=== PATIENT | male | born 1935 | race Caucasian/White ===

== ENCOUNTER 2016-09-25 17:02 | Outpatient (CLI) | payer MEDICARE, BC | END 2016-09-25 17:03 | disposition home or self-care (01) | DX: I25.10 Atherosclerotic heart disease of native coronary artery without angina pectoris (principal); I48.0 Paroxysmal atrial fibrillation; I49.5 Sick sinus syndrome; R06.09 Other forms of dyspnea ==

== ENCOUNTER 2016-10-29 08:00 | Outpatient (CLI) | payer MEDICARE, BC | END 2016-10-29 08:01 | DX: R39.11 Hesitancy of micturition (principal) ==

== ENCOUNTER 2016-11-20 10:05 | Outpatient (CLI) | payer MEDICARE, BC | END 2016-11-20 10:06 | disposition home or self-care (01) | DX: E11.9 Type 2 diabetes mellitus without complications (principal); E78.5 Hyperlipidemia, unspecified; D48.5 Neoplasm of uncertain behavior of skin; I10 Essential (primary) hypertension; I25.10 Atherosclerotic heart disease of native coronary artery without angina pectoris ==

== ENCOUNTER 2016-12-20 01:00 | Outpatient (CLI) | payer MEDICARE, BC | END 2016-12-20 01:01 | disposition EMS.NT | LOC: EMS 01:00 | PROVIDERS: ATTEND Surgery | DX: R40.20 Unspecified coma (principal); R53.1 Weakness; E16.2 Hypoglycemia, unspecified ==

== ENCOUNTER 2016-12-25 09:08 | Outpatient (CLI) | payer MEDICARE, BC ==
[2016-12-25 13:18] LABS: BILIRUBIN,DIRECT 0.2 mg/dL (0.1-0.5); BILIRUBIN,TOTAL 1.4 mg/dL (0.2-1.0)
== END 2016-12-25 09:09 | disposition home or self-care (01) ==
LOC: LAB.WCP 09:08
PROVIDERS: ATTEND Family Medicine
DX: R74.8 Abnormal levels of other serum enzymes (principal); E11.9 Type 2 diabetes mellitus without complications; I48.0 Paroxysmal atrial fibrillation
CPT/HCPCS: 36415; 80076; 82150; 83690

== ENCOUNTER 2017-01-02 15:01 | Outpatient (CLI) | payer MEDICARE, BC ==
--- NOTE | 2017-01-02 17:25 | Ultrasound Report ---
SCROTAL DUPLEX: 01/02/2017 CLINICAL INDICATION: Intermittent right-sided pain. TECHNIQUE: Real-time scanning was performed with underwriting service representative static images obtained. The right testicle measures 3.4 x 2.5 x 2.0 cm, and the left testicle measures 3.7 x 2.4 x 2.1 cm. B oth testicles demonstrate normal flow and echotexture. A small right hydrocele is present, and small bilateral varicoceles are noted. No intratesticular mass or evidence of testicular torsion is ident ified. IMPRESSION: BILATERAL VARICOCELES AND SMALL RIGHT HYDROCELE. NO EVIDENCE OF INTRATESTICULAR MASS OR TORSION. 16:9:56 JOB #: [id number] EXT JOB #:[id number]
== END 2017-01-02 15:02 | disposition home or self-care (01) ==
LOC: DI 15:01
PROVIDERS: ATTEND Family Medicine
DX: N43.3 Hydrocele, unspecified (principal); I87.8 Other specified disorders of veins
CPT/HCPCS: 76870

== ENCOUNTER 2017-02-21 10:39 | Outpatient (CLI) | payer MEDICARE, BC ==
[2017-02-21 13:47] LABS: ALBUMIN/GLOBULIN RATIO 1.2 (1.0-2.2); BILIRUBIN,TOTAL 1.1 mg/dL (0.2-1.0); CALCIUM 9.1 mg/dL (8.5-10.3); CREATININE 0.8 mg/dL (0.6-1.2); POTASSIUM 4.1 mmol/L (3.5-5.0); TOTAL PROTEIN 6.7 g/dL (6.7-8.2)
[2017-02-21 13:58] LABS: HEMOGLOBIN A1C 0.94 g/dL
== END 2017-02-21 10:40 | disposition home or self-care (01) ==
LOC: LAB.WCP 10:39
PROVIDERS: ATTEND Family Medicine
DX: R74.8 Abnormal levels of other serum enzymes (principal); E11.9 Type 2 diabetes mellitus without complications; N28.9 Disorder of kidney and ureter, unspecified
CPT/HCPCS: 36415; 80053; 83036

== ENCOUNTER 2017-04-17 14:27 | Outpatient (CLI) | payer MEDICARE, BC ==
[2017-04-17 13:25] LABS: BILIRUBIN,TOTAL 0.9 mg/dL (0.2-1.0); TOTAL PROTEIN 7.1 g/dL (6.7-8.2)
[2017-04-17 13:28] LABS: HEMOGLOBIN A1C 0.88 g/dL
[2017-04-17 13:29] LABS: BILIRUBIN,DIRECT < 0.1 mg/dL (0.1-0.5)
== END 2017-04-17 14:28 | disposition home or self-care (01) ==
LOC: LAB.WCP 14:27
PROVIDERS: ATTEND Family Medicine
DX: R74.8 Abnormal levels of other serum enzymes (principal); E11.9 Type 2 diabetes mellitus without complications; I25.10 Atherosclerotic heart disease of native coronary artery without angina pectoris; N28.9 Disorder of kidney and ureter, unspecified
CPT/HCPCS: 36415; 80076; 83036

== ENCOUNTER 2017-06-17 15:10 | Outpatient (CLI) | payer MEDICARE, BC ==
[2017-06-17 19:41] LABS: ALBUMIN/GLOBULIN RATIO 1.2 (1.0-2.2); BILIRUBIN,TOTAL 0.9 mg/dL (0.2-1.0); CALCIUM 9.2 mg/dL (8.5-10.3); POTASSIUM 4.6 mmol/L (3.5-5.0); TOTAL PROTEIN 7.3 g/dL (6.7-8.2)
[2017-06-17 20:04] LABS: HEMOGLOBIN A1C 1.05 g/dL
== END 2017-06-17 15:11 | disposition home or self-care (01) ==
LOC: LAB.WCP 15:10
PROVIDERS: ATTEND Family Medicine
DX: R74.8 Abnormal levels of other serum enzymes (principal); E11.9 Type 2 diabetes mellitus without complications; I48.0 Paroxysmal atrial fibrillation; Z79.01 Long term (current) use of anticoagulants
CPT/HCPCS: 36415; 80053; 83036

== ENCOUNTER 2017-07-08 13:47 | Outpatient (CLI) | payer MEDICARE, BC ==
--- NOTE | 2017-07-08 15:51 | Mammography Report ---
EXAM: DIGITAL DIAGNOSTIC BILATERAL MAMMOGRAM: 07/08/2017 CLINICAL INDICATION: Left-sided tenderness, thickening. TECHNIQUE: Bilateral CC and MLO views. FINDINGS: The right breast demonstrates fatty replacement. Left gynecomastia is present. No suspicious masses, clustered microcalcifications, or regions of architectural distortion are identified. IMPRESSION: BENIGN FINDINGS, WITH ASYMMETRIC GYNECOMASTIA. RECOMMENDATIONS: Continued clinical management. BIRADS CATEGORY 2-BENIGN FINDINGS. STANDARD QUALIFYING STATEMENTS 1. This examination was reviewed with the aid of Computer-Aided Detection (CAD) . 2. A negative or benign imaging report should not delay biopsy if clinically suspicious mass is present. Consider surgical consultation if warranted. More than 5% of cancers are not identified by imaging. 3. Dense breasts may obscure an underlying neoplasm. TD: 07/08/2017 15:50 MTDD
== END 2017-07-08 13:48 | disposition home or self-care (01) ==
LOC: DI 13:47
PROVIDERS: ATTEND Family Medicine
DX: N64.4 Mastodynia (principal)
CPT/HCPCS: 77066

== ENCOUNTER 2017-09-02 16:10 | Outpatient (CLI) | payer MEDICARE, BC ==
[2017-09-02 19:30] LABS: HB2 TOTAL 16.4 g/dL; HEMOGLOBIN A1C 0.96 g/dL; HEMOGLOBIN A1C % 7.5 % (4.6-6.2)
[2017-09-02 19:44] LABS: CALCIUM 9.1 mg/dL (8.5-10.3); CREATININE 1.2 mg/dL (0.6-1.2)
== END 2017-09-02 16:11 | disposition home or self-care (01) ==
LOC: LAB.WCP 16:10
PROVIDERS: ATTEND Family Medicine
DX: E11.9 Type 2 diabetes mellitus without complications (principal)
CPT/HCPCS: 36415; 80048; 82043; 83036

== ENCOUNTER 2018-02-26 08:00 | Outpatient (CLI) | payer MEDICARE, BC ==
[2018-02-26 19:21] LABS: HB2 TOTAL 15.9 g/dL; HEMOGLOBIN A1C 0.8 g/dL; HEMOGLOBIN A1C % 6.8 % (4.6-6.2)
[2018-02-26 19:26] LABS: CALCIUM 9.2 mg/dL (8.5-10.3)
== END 2018-02-26 08:01 | disposition home or self-care (01) ==
LOC: LAB.WCP 08:00
PROVIDERS: ATTEND Family Medicine
DX: R74.8 Abnormal levels of other serum enzymes (principal); E11.9 Type 2 diabetes mellitus without complications; I10 Essential (primary) hypertension; I25.10 Atherosclerotic heart disease of native coronary artery without angina pectoris
CPT/HCPCS: 36415; 80048; 83036

== ENCOUNTER 2018-05-22 11:46 | Outpatient (CLI) | payer MEDICARE, BC ==
[2018-05-22 19:04] LABS: ALBUMIN 3.8 g/dL (3.2-5.5); ALBUMIN/GLOBULIN RATIO 1.2 (1.0-2.2); ALKALINE PHOSPHATASE 105 IU/L (42-121); ALT ALANINE AMINOTRANSFERASE 49 IU/L (10-60); AST ASPARTATE AMINOTRANSFERASE 39 IU/L (10-42); BILIRUBIN,TOTAL 1.2 mg/dL (0.2-1.0); BUN - BLOOD UREA NITROGEN 24 mg/dL (6-20); CALCIUM 8.6 mg/dL (8.5-10.3); CARBON DIOXIDE - CO2 25 mmol/L (21-32); CHLORIDE 106 mmol/L (101-111); CHOL/HDL RATIO 3.2 (<5.0); CHOLESTEROL 124 mg/dL; CREATININE 0.7 mg/dL (0.6-1.2); GFR - MDRD 108 (>89); GLUCOSE 121 mg/dL (70-100); HDL CHOLESTEROL 39 mg/dL; LDL CHOLESTEROL,CALCULATED 70 mg/dL; LDL/HDL RATIO 1.8 (<3.6); SODIUM 137 mmol/L (135-145); TOTAL PROTEIN 7.1 g/dL (6.7-8.2); URIC ACID 5.3 mg/dL (2.6-7.2); VLDL CHOLESTEROL 15 mg/dL
[2018-05-22 19:41] LABS: HB2 TOTAL 15.3 g/dL; HEMOGLOBIN A1C 0.81 g/dL
== END 2018-05-22 11:47 | disposition home or self-care (01) ==
LOC: LAB.WCP 11:46
PROVIDERS: ATTEND Family Medicine
DX: I48.91 Unspecified atrial fibrillation (principal); E11.9 Type 2 diabetes mellitus without complications; M10.00 Idiopathic gout, unspecified site; I10 Essential (primary) hypertension; I25.10 Atherosclerotic heart disease of native coronary artery without angina pectoris
CPT/HCPCS: 36415; 80053; 80061; 82043; 83036; 83721; 84550

== ENCOUNTER 2018-09-17 12:56 | Outpatient (CLI) | payer MEDICARE, BC ==
[2018-09-17 19:29] LABS: CALCIUM 8.9 mg/dL (8.5-10.3); CREATININE 0.8 mg/dL (0.6-1.2)
== END 2018-09-17 12:57 | disposition home or self-care (01) ==
LOC: LAB.WCP 12:56
PROVIDERS: ATTEND Internal Medicine Cardiovascular Disease
DX: I48.0 Paroxysmal atrial fibrillation (principal); I10 Essential (primary) hypertension
CPT/HCPCS: 36415; 80048

== ENCOUNTER 2018-09-24 12:24 | Outpatient (CLI) | payer MEDICARE, BC ==
[2018-09-24 19:43] LABS: HEMOGLOBIN A1C 0.97 g/dL; HEMOGLOBIN A1C % 8.1 % (4.6-6.2)
[2018-09-24 19:46] LABS: ALBUMIN 3.7 g/dL (3.2-5.5); ALKALINE PHOSPHATASE 103 IU/L (42-121); ALT ALANINE AMINOTRANSFERASE 50 IU/L (10-60); AST ASPARTATE AMINOTRANSFERASE 37 IU/L (10-42); BILIRUBIN,TOTAL 0.8 mg/dL (0.2-1.0); TOTAL PROTEIN 6.7 g/dL (6.7-8.2)
[2018-09-24 20:35] LABS: BILIRUBIN,DIRECT < 0.1 mg/dL (0.1-0.5)
== END 2018-09-24 12:25 | disposition home or self-care (01) ==
LOC: LAB.WCP 12:24
PROVIDERS: ATTEND Family Medicine
DX: E11.9 Type 2 diabetes mellitus without complications (principal); R74.8 Abnormal levels of other serum enzymes; I10 Essential (primary) hypertension; C78.5 Secondary malignant neoplasm of large intestine and rectum
CPT/HCPCS: 36415; 80076; 83036

== ENCOUNTER 2018-11-06 08:00 | Outpatient (CLI) | payer MEDICARE, BC | END 2018-11-06 23:59 | disposition home or self-care (01) | LOC: LAB.WCP 08:00 | PROVIDERS: ATTEND Family Medicine | DX: I48.91 Unspecified atrial fibrillation (principal); Z79.01 Long term (current) use of anticoagulants ==

== ENCOUNTER 2018-11-20 08:00 | Outpatient (CLI) | payer MEDICARE, BC | END 2018-11-20 08:01 | disposition home or self-care (01) | LOC: LAB.WCP 08:00 | PROVIDERS: ATTEND Family Medicine | DX: I48.0 Paroxysmal atrial fibrillation (principal); Z79.01 Long term (current) use of anticoagulants ==

== ENCOUNTER 2019-02-26 08:26 | Outpatient (CLI) | payer MEDICARE, BC | END 2019-02-26 23:59 | disposition home or self-care (01) | LOC: LAB.N 08:26 | PROVIDERS: ATTEND Family Medicine | DX: I48.91 Unspecified atrial fibrillation (principal); Z79.01 Long term (current) use of anticoagulants | CPT/HCPCS: 85610 ==

== ENCOUNTER 2019-03-13 08:00 | Outpatient (CLI) | payer MEDICARE, BC | END 2019-03-13 23:59 | disposition home or self-care (01) | LOC: LAB.WCP 08:00 | PROVIDERS: ATTEND Family Medicine | DX: I48.91 Unspecified atrial fibrillation (principal); Z79.01 Long term (current) use of anticoagulants ==

== ENCOUNTER 2019-03-30 08:00 | Outpatient (CLI) | payer MEDICARE, BC | END 2019-03-30 23:59 | disposition home or self-care (01) | LOC: LAB.WCP 08:00 | PROVIDERS: ATTEND Family Medicine | DX: I48.0 Paroxysmal atrial fibrillation (principal); Z79.01 Long term (current) use of anticoagulants ==

== ENCOUNTER 2019-04-07 08:00 | Outpatient (CLI) | payer MEDICARE, BC ==
[2019-04-07 19:17] LABS: HB2 TOTAL 15.4 g/dL; HEMOGLOBIN A1C 0.82 g/dL
== END 2019-04-07 23:59 ==
LOC: LAB.N 08:00
PROVIDERS: ATTEND Family Medicine
DX: E11.9 Type 2 diabetes mellitus without complications (principal)
CPT/HCPCS: 36415; 83036

== ENCOUNTER 2019-04-08 08:00 | Outpatient (CLI) | payer MEDICARE, BC ==
[2019-04-08 12:03] LABS: ALBUMIN 3.6 g/dL (3.2-5.5); ALKALINE PHOSPHATASE 104 IU/L (42-121); ALT ALANINE AMINOTRANSFERASE 78 IU/L (10-60); AST ASPARTATE AMINOTRANSFERASE 60 IU/L (10-42); BUN - BLOOD UREA NITROGEN 26 mg/dL (6-20); CARBON DIOXIDE - CO2 24 mmol/L (21-32); CHLORIDE 106 mmol/L (101-111); CHOL/HDL RATIO 3.8 (<5.0); CHOLESTEROL 113 mg/dL; CREATININE 0.9 mg/dL (0.6-1.2); GFR - MDRD 81 (>89); GLUCOSE 90 mg/dL (70-100); HDL CHOLESTEROL 30 mg/dL; LDL CHOLESTEROL,CALCULATED 67 mg/dL; LDL/HDL RATIO 2.2 (<3.6); SODIUM 138 mmol/L (135-145); TOTAL PROTEIN 7.1 g/dL (6.7-8.2); VLDL CHOLESTEROL 16 mg/dL
== END 2019-04-08 23:59 | disposition home or self-care (01) ==
LOC: LAB.N 08:00
PROVIDERS: ATTEND Internal Medicine Cardiovascular Disease
DX: E78.5 Hyperlipidemia, unspecified (principal)
CPT/HCPCS: 36415; 80053; 80061; 83721

== ENCOUNTER 2019-04-27 08:00 | Outpatient (CLI) | payer MEDICARE, BC | END 2019-04-27 23:59 | disposition home or self-care (01) | LOC: LAB.WCP 08:00 | PROVIDERS: ATTEND Family Medicine | DX: I48.91 Unspecified atrial fibrillation (principal); Z79.01 Long term (current) use of anticoagulants ==

== ENCOUNTER 2019-05-25 08:00 | Outpatient (CLI) | payer MEDICARE, BC | END 2019-05-25 23:59 | disposition home or self-care (01) | LOC: LAB.WCP 08:00 | PROVIDERS: ATTEND Family Medicine | DX: I48.91 Unspecified atrial fibrillation (principal); Z79.01 Long term (current) use of anticoagulants ==

== ENCOUNTER 2019-06-07 20:49 | Emergency (ER) | payer MEDICARE, BC ==
[2019-06-07 21:00] VITALS: BP 150/81
--- NOTE | 2019-06-07 21:14 | ED Physician Documentation ---
History of Present Illness - Stated complaint Stated Complaint: POSSIBLE INGESTION OF UNK SUBSTANCE - Chief complaint Chief Complaint: General - History obtained from History obtained from: Patient - History of Present Illness Timing: Other (After eating some potato soup tonight he drank out of a glass of water. He thought he saw something in the water and then put it in the sink. He thought it might of curled up. He retrieved it and brought it in for evaluation. He has no symptoms) Review of Systems Constitutional: reports: Reviewed and negative Cardiac: reports: Reviewed and negative Respiratory: reports: Reviewed and negative PD PAST MEDICAL HISTORY - Past Medical History Cardiovascular: Hypertension, High cholesterol, Coronary artery disease, Atrial fibrillation Endocrine/Autoimmune: Type 2 diabetes GI: GERD : Benign prostate hypertrophy, Renal insuffiency HEENT: Chronic hearing loss Psych: Anxiety Musculoskeletal: Osteoarthritis, Gout, Chronic back pain - Past Surgical History Past Surgical History: Yes Cardiovascular: Coronary stent HEENT: Tonsil/Adenoidectomy - Present Medications Home Medications: Ambulatory Orders Medication Instructions Recorded Confirmed Allopurinol [Zyloprim] 150 mg PO DAILY 08/16/13 04/18/14 Aspirin [Aspir 81] 81 mg PO DAILY 08/16/13 04/18/14 Atorvastatin Calcium [Lipitor] 40 mg PO QPM 08/16/13 04/18/14 Calcium Carbonate [Calcium] 250 mg PO DAILY 08/16/13 04/18/14 Clopidogrel [Plavix] 75 mg PO QPM 08/16/13 04/18/14 Esomeprazole Magnesium [Nexium] 20 mg PO DAILY 08/16/13 04/18/14 Ezetimibe [Zetia] 10 mg PO QD 08/16/13 04/18/14 Glucosamine/Methylsulfonylmeth [Sm 1 each PO BID 08/16/13 04/18/14 Glucosamine & MSM Tablet] Ibuprofen 800 mg PO DAILY 08/16/13 04/18/14 Lisinopril [Zestril] 5 mg PO ONCE 08/16/13 04/18/14 Metformin HCl [Glumetza] 500 mg PO BID 08/16/13 04/18/14 Multivitamin [Multi-Vitamin Daily] 1 each PO DAILY 08/16/13 04/18/14 Tamsulosin [Flomax] 0.4 mg PO DAILY 08/16/13 04/18/14 Vit B12/Folic Acid/B6/Aa No.15 1 each PO DAILY 08/16/13 04/18/14 [Glycotrol Capsule] Vit D3/Folic Acid/B2/B6/B12 2,000 units PO DAILY 08/16/13 04/18/14 [Folgard Tablet] Atenolol 12.5 mg QPM 03/14/14 04/18/14 diltiaZEM [Cardizem] 30 mg PO Q6H #30 tablet 03/14/14 04/18/14 Insulin Glargine [Lantus Solostar] 25 units SQ DAILY 04/16/14 04/18/14 Insulin Lispro [Humalog] 5 - 15 unit SQ ACHS PRN 04/16/14 04/18/14 Mccormick-3 Fatty Acids/Fish Oil [Fish 1 each PO BID 04/16/14 04/18/14 Oil 1,000 mg Capsule] Ubidecarenone [Co Q-10] 300 mg PO BID 04/16/14 04/18/14 Hydrocodone/Acetaminophen 1 each PO Q6H PRN #20 tablet 04/18/14 [Hydrocodon-Acetaminophen 5-325] - Allergies Allergies/Adverse Reactions: Allergies Allergy/AdvReac Type Severity Reaction Status Date / Time erythromycin base Allergy Unknown Verified 04/18/14 17:13 [Erythromycin Base] naproxen Allergy Unknown Verified 04/18/14 17:13 nitroglycerin Allergy Unknown Verified 04/18/14 17:13 - Social History Does the pt smoke?: No Smoking Status: Never smoker Does the pt drink ETOH?: No Does the pt have substance abuse?: No - POLST Patient has POLST: No PD ED PE NORMAL - Vitals Vital signs reviewed: Yes - General General: Alert and oriented X 3, No acute distress - Neuro Neuro: Alert and oriented X 3, Normal speech - Psych Psych: Normal mood, Normal affect Results - Vitals Vitals: Vital Signs - 24 hr 06/07/19 20:57 Temperature 37 C Heart Rate 82 Respiratory 16 Rate Blood Pressure 150/81 H O2 Saturation 95 Oxygen O2 Source Room air PD MEDICAL DECISION MAKING - ED course ED course: Examination of the material brought that he brought in with him which is in water, it appears to be chewed up potato. He was reassured that this is not toxic. Departure - Departure Disposition: 01 Home, Self Care Clinical Impression: Ingestion of nontoxic substance Qualifiers: Encounter type: initial encounter Injury intent: undetermined intent Qualified Code(s): T65.94XA - Toxic effect of unspecified substance, undetermined, initial encounter Condition: Good Record reviewed to determine appropriate education?: Yes Comments: Return if you develop any symptoms.
== END 2019-06-07 21:17 | disposition home or self-care (01) ==
LOC: ED 20:49
DX: Z03.89 Encounter for observation for other suspected diseases and conditions ruled out (principal); I10 Essential (primary) hypertension; E11.9 Type 2 diabetes mellitus without complications; Z79.4 Long term (current) use of insulin; I48.91 Unspecified atrial fibrillation; Z79.02 Long term (current) use of antithrombotics/antiplatelets; Z79.82 Long term (current) use of aspirin
CPT/HCPCS: 99282

== ENCOUNTER 2019-06-22 08:00 | Outpatient (CLI) | payer MEDICARE, BC | END 2019-06-22 23:59 | disposition home or self-care (01) | LOC: LAB.WCP 08:00 | PROVIDERS: ATTEND Family Medicine | DX: I48.91 Unspecified atrial fibrillation (principal) ==

== ENCOUNTER 2019-07-07 12:13 | Outpatient (CLI) | payer MEDICARE, BC ==
[2019-07-07 20:15] LABS: HB2 TOTAL 14.3 g/dL; HEMOGLOBIN A1C 0.92 g/dL
== END 2019-07-07 23:59 | disposition home or self-care (01) ==
LOC: LAB.N 12:13
PROVIDERS: ATTEND Family Medicine
DX: E11.9 Type 2 diabetes mellitus without complications (principal)
CPT/HCPCS: 36415; 83036

== ENCOUNTER 2019-07-20 08:00 | Outpatient (CLI) | payer MEDICARE, BC | END 2019-07-20 23:59 | disposition home or self-care (01) | LOC: LAB.WCP 08:00 | PROVIDERS: ATTEND Family Medicine | DX: Z79.01 Long term (current) use of anticoagulants (principal); I48.91 Unspecified atrial fibrillation ==

== ENCOUNTER 2019-07-27 08:00 | Outpatient (CLI) | payer MEDICARE, BC | END 2019-07-27 23:59 | disposition home or self-care (01) | LOC: LAB.WCP 08:00 | PROVIDERS: ATTEND Family Medicine | DX: Z79.01 Long term (current) use of anticoagulants (principal); I48.91 Unspecified atrial fibrillation ==

== ENCOUNTER 2019-08-03 08:00 | Outpatient (CLI) | payer MEDICARE, BC | END 2019-08-03 23:59 | disposition home or self-care (01) | LOC: LAB.WCP 08:00 | PROVIDERS: ATTEND Family Medicine | DX: Z79.01 Long term (current) use of anticoagulants (principal); I48.91 Unspecified atrial fibrillation ==

== ENCOUNTER 2019-08-17 08:00 | Outpatient (CLI) | payer MEDICARE, BC | END 2019-08-17 23:59 | disposition home or self-care (01) | LOC: LAB.WCP 08:00 | PROVIDERS: ATTEND Family Medicine | DX: Z79.01 Long term (current) use of anticoagulants (principal); I48.91 Unspecified atrial fibrillation ==

== ENCOUNTER 2019-08-31 08:00 | Outpatient (CLI) | payer MEDICARE, BC | END 2019-08-31 23:59 | disposition home or self-care (01) | LOC: LAB.WCP 08:00 | PROVIDERS: ATTEND Family Medicine | DX: I48.91 Unspecified atrial fibrillation (principal); Z79.01 Long term (current) use of anticoagulants ==

== ENCOUNTER 2019-09-22 08:00 | Outpatient (CLI) | payer MEDICARE, BC | END 2019-09-22 23:59 | disposition home or self-care (01) | LOC: LAB.WCP 08:00 | PROVIDERS: ATTEND Family Medicine | DX: I48.91 Unspecified atrial fibrillation (principal); Z79.01 Long term (current) use of anticoagulants ==

== ENCOUNTER 2019-10-12 08:00 | Outpatient (CLI) | payer MEDICARE, BC | END 2019-10-12 23:59 | disposition home or self-care (01) | LOC: LAB.WCP 08:00 | PROVIDERS: ATTEND Family Medicine | DX: I48.91 Unspecified atrial fibrillation (principal); Z79.01 Long term (current) use of anticoagulants ==

== ENCOUNTER 2019-11-09 08:00 | Outpatient (CLI) | payer MEDICARE, BC | END 2019-11-09 23:59 | disposition home or self-care (01) | LOC: LAB.WCP 08:00 | PROVIDERS: ATTEND Family Medicine | DX: I48.91 Unspecified atrial fibrillation (principal); Z79.01 Long term (current) use of anticoagulants ==

== ENCOUNTER 2019-11-16 08:00 | Outpatient (CLI) | payer MEDICARE, BC | END 2019-11-16 23:59 | disposition home or self-care (01) | LOC: LAB.WCP 08:00 | PROVIDERS: ATTEND Family Medicine | DX: I48.91 Unspecified atrial fibrillation (principal); Z79.4 Long term (current) use of insulin ==

== ENCOUNTER 2019-11-30 08:00 | Outpatient (CLI) | payer MEDICARE, BC | END 2019-11-30 23:59 | disposition home or self-care (01) | LOC: LAB.N 08:00 | PROVIDERS: ATTEND Family Medicine | DX: I48.91 Unspecified atrial fibrillation (principal); Z79.4 Long term (current) use of insulin ==

== ENCOUNTER 2019-11-30 11:30 | Outpatient (CLI) | payer MEDICARE, BC ==
[2019-11-30 13:41] LABS: ALBUMIN 3.8 g/dL (3.2-5.5); ALBUMIN/GLOBULIN RATIO 1.1 (1.0-2.2); BILIRUBIN,TOTAL 1.3 mg/dL (0.2-1.0); CALCIUM 8.9 mg/dL (8.5-10.3); CREATININE 0.9 mg/dL (0.6-1.2); TOTAL PROTEIN 7.3 g/dL (6.7-8.2)
== END 2019-11-30 23:59 | disposition home or self-care (01) ==
LOC: LAB.WCP 11:30
PROVIDERS: ATTEND Internal Medicine Cardiovascular Disease
DX: I10 Essential (primary) hypertension (principal)
CPT/HCPCS: 36415; 80053

== ENCOUNTER 2019-12-08 11:24 | Outpatient (CLI) | payer MEDICARE, BC ==
--- NOTE | 2019-12-09 10:02 | XRAY Report ---
Reason: LEFT HIP PAIN Procedure Date: 12/08/2019 Accession Number: [id number] / [id number] Procedure: WCP - Hip 1 View LT CPT Code: Final Report FULL RESULT: EXAM: LEFT HIP RADIOGRAPHY 2 VIEWS EXAM DATE: 12/08/2019. CLINICAL HISTORY: Left hip pain. COMPARISON: Bilateral hip radiography done 02/11/2015. TECHNIQUE: AP view of the pelvis and a frog-leg view of the left hip. FINDINGS: Bones: Normal. No fractures or bone lesion. Joints: No subluxation. Moderate hip joint narrowing a small acetabular and femoral head osteophytes bilaterally, unchanged. Mild sclerosis at the inferior margin of the right sacroiliac joint. Soft Tissues: Normal. No soft tissue swelling. 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 Mild degenerative changes of the right sacroiliac joint. No acute abnormality or change from 02/11/2015. RADIA
== END 2019-12-08 23:59 | disposition home or self-care (01) ==
LOC: DI.WCP 11:24
PROVIDERS: ATTEND Nurse Practitioner Family
DX: M16.12 Unilateral primary osteoarthritis, left hip (principal); M47.898 Other spondylosis, sacral and sacrococcygeal region

== ENCOUNTER 2019-12-28 08:00 | Outpatient (CLI) | payer MEDICARE, BC | END 2019-12-28 23:59 | disposition home or self-care (01) | LOC: LAB.WCP 08:00 | PROVIDERS: ATTEND Family Medicine | DX: I48.91 Unspecified atrial fibrillation (principal); Z79.01 Long term (current) use of anticoagulants ==

== ENCOUNTER 2020-01-25 08:00 | Outpatient (CLI) | payer MEDICARE, BC | END 2020-01-25 23:59 | disposition home or self-care (01) | LOC: LAB.WCP 08:00 | PROVIDERS: ATTEND Family Medicine | DX: I48.91 Unspecified atrial fibrillation (principal); Z79.01 Long term (current) use of anticoagulants ==

== ENCOUNTER 2020-02-22 08:00 | Outpatient (CLI) | payer MEDICARE, BC | END 2020-02-22 23:59 | disposition home or self-care (01) | LOC: LAB.WCP 08:00 | PROVIDERS: ATTEND Family Medicine | DX: I48.91 Unspecified atrial fibrillation (principal); Z79.01 Long term (current) use of anticoagulants ==

== ENCOUNTER 2020-03-16 08:00 | Outpatient (CLI) | payer MEDICARE, BC | END 2020-03-16 23:59 | disposition home or self-care (01) | LOC: LAB.WCP 08:00 | PROVIDERS: ATTEND Family Medicine | DX: I48.91 Unspecified atrial fibrillation (principal); Z79.01 Long term (current) use of anticoagulants ==

== ENCOUNTER 2020-03-24 08:00 | Outpatient (CLI) | payer MEDICARE, BC ==
[2020-03-24 20:40] LABS: HEMOGLOBIN A1c% 7.6 % (4.27-6.07)
[2020-03-26 16:16] LABS: ALBUMIN 3.6 g/dL (3.8-4.8); ALPHA 1 GLOBULIN 0.3 g/dL (0.2-0.3); ALPHA 2 GLOBULIN 0.6 g/dL (0.5-0.9); BETA 1 GLOBULIN 0.4 g/dL (0.4-0.6); BETA 2 GLOBULIN 0.4 g/dL (0.2-0.5); GAMMA GLOBULIN 1.3 g/dL (0.8-1.7)
== END 2020-03-24 23:59 | disposition home or self-care (01) ==
LOC: LAB.WCP 08:00
PROVIDERS: ATTEND Internal Medicine
DX: M81.0 Age-related osteoporosis without current pathological fracture (principal); E11.9 Type 2 diabetes mellitus without complications; Z79.4 Long term (current) use of insulin
CPT/HCPCS: 36415; 81599; 82306; 82523; 83036; 84155; 84165

== ENCOUNTER 2020-04-13 08:00 | Outpatient (CLI) | payer MEDICARE, BC | END 2020-04-13 23:59 | disposition home or self-care (01) | LOC: LAB.WCP 08:00 | PROVIDERS: ATTEND Family Medicine | DX: Z79.01 Long term (current) use of anticoagulants (principal) ==

== ENCOUNTER 2020-04-27 08:00 | Outpatient (CLI) | payer MEDICARE, BC | END 2020-04-27 23:59 | disposition home or self-care (01) | LOC: LAB.WCP 08:00 | PROVIDERS: ATTEND Family Medicine | DX: Z79.01 Long term (current) use of anticoagulants (principal) ==

== ENCOUNTER 2020-05-04 08:00 | Outpatient (CLI) | payer MEDICARE, BC | END 2020-05-04 23:59 | disposition home or self-care (01) | LOC: LAB.WCP 08:00 | PROVIDERS: ATTEND Family Medicine | DX: Z79.01 Long term (current) use of anticoagulants (principal) ==

== ENCOUNTER 2020-05-18 08:00 | Outpatient (CLI) | payer MEDICARE, BC | END 2020-05-18 23:59 | disposition home or self-care (01) | LOC: LAB.WCP 08:00 | PROVIDERS: ATTEND Family Medicine | DX: Z79.01 Long term (current) use of anticoagulants (principal) ==

== ENCOUNTER 2020-05-25 08:00 | Outpatient (CLI) | payer MEDICARE, BC | END 2020-05-25 23:59 | disposition home or self-care (01) | LOC: LAB.WCP 08:00 | PROVIDERS: ATTEND Family Medicine | DX: Z79.01 Long term (current) use of anticoagulants (principal) ==

== ENCOUNTER 2020-06-27 15:37 | Emergency (ER) | payer MEDICARE, BC | END 2020-06-27 15:59 | disposition left against medical advice (07) | LOC: ED 15:37 | DX: Z53.21 Procedure and treatment not carried out due to patient leaving prior to being seen by health care provider (principal) ==

== ENCOUNTER 2020-06-30 01:07 | Outpatient (CLI) | payer MEDICARE, BC | END 2020-06-30 01:08 | disposition EMS.NT | LOC: EMS 01:07 | PROVIDERS: ATTEND Surgery | DX: R10.9 Unspecified abdominal pain (principal) ==

== ENCOUNTER 2020-06-30 16:10 | Emergency (ER) | payer MEDICARE, BC ==
[2020-06-30 16:58] LABS: BILIRUBIN,URINE NEGATIVE (NEGATIVE); GLUCOSE, URINE (UA) NEGATIVE (NEGATIVE); KETONES,URINE (UA) NEGATIVE (NEGATIVE); LEUKOCYTE ESTERASE, URINE NEGATIVE (NEGATIVE); NITRITE,URINE NEGATIVE (NEGATIVE); OCCULT BLOOD,URINE LARGE (NEGATIVE); PROTEIN,URINE 30 mg/dL (NEGATIVE); UROBILINOGEN,URINE 0.2 (NORMAL) E.U./dL (NORMAL)
[2020-06-30 17:05] LABS: CLARITY,URINE BLOODY (CLEAR)
[2020-06-30 17:06] LABS: BACTERIA,URINE None Seen /HPF (None Seen); RBC,URINE TNTC /HPF (0-5); SQUAMOUS EPITHELIAL CELL,UR NONE SEEN (<= Few); YEAST,URINE PRESENT
--- NOTE | 2020-06-30 17:06 | ED Physician Documentation ---
History of Present Illness - Stated complaint Stated Complaint: LFT FLANK PX/ REFFERED BY OFFICE - Chief complaint Chief Complaint: Abd Pain - History obtained from History obtained from: Patient - History of Present Illness Timing: Prior to arrival - Additonal information Additional information: This is a very pleasant and well-appearing 85-year-old gentleman that comes to the emergency department for evaluation of acute onset left flank pain. This began last night. Initially it was intermittent but it has since become constant. The patient reports that he had very dark urine this morning he was unsure if it was bloody. He does report a history of kidney stones many many years ago but is unsure which side he had them on. He does have a history of atrial fibrillation. He was previously on Coumadin But because he did not like having to check his INR's and adjust dosages he did ask his primary care provider to transition him to one of the new novel anticoagulants. He was thus started on Xarelto. However with the Xarelto he noticed that he was having nosebleeds intermittently. He then spoke with his primary doctor and yesterday he was transition to Eliquis. He states that with the Eliquis he is not bleeding as much. He did blow his nose this morning and there was just a little bit of blood but he did not have any active bleeding. Petra perez denies gumline bruising or blood when he brushes his teeth. He has no petechiae. In point he denies any chest pain or shortness of breath. Denies cough, fevers, vomiting or melena. Review of Systems Constitutional: reports: Reviewed and negative Eyes: reports: Reviewed and negative Ears: reports: Reviewed and negative Nose: reports: Reviewed and negative Throat: reports: Reviewed and negative Cardiac: reports: Reviewed and negative Respiratory: reports: Reviewed and negative GI: reports: Abdominal Pain. denies: Nausea, Vomiting, Hematemesis, Bloody / black stool : reports: Hematuria. denies: Dysuria, Frequency Skin: reports: Reviewed and negative Musculoskeletal: reports: Reviewed and negative PD PAST MEDICAL HISTORY - Past Medical History Cardiovascular: Hypertension, High cholesterol, Coronary artery disease, Atrial fibrillation Endocrine/Autoimmune: Type 2 diabetes GI: GERD : Benign prostate hypertrophy, Renal insuffiency HEENT: Chronic hearing loss Psych: Anxiety Musculoskeletal: Osteoarthritis, Gout, Chronic back pain - Past Surgical History Past Surgical History: Yes Cardiovascular: Coronary stent HEENT: Tonsil/Adenoidectomy - Present Medications Home Medications: Ambulatory Orders Medication Instructions Recorded Confirmed Aspirin [Aspir 81] 81 mg PO DAILY 08/16/13 04/18/14 Atorvastatin Calcium [Lipitor] 40 mg PO QPM 08/16/13 04/18/14 Calcium Carbonate [Calcium] 250 mg PO DAILY 08/16/13 04/18/14 Clopidogrel [Plavix] 75 mg PO QPM 08/16/13 04/18/14 Esomeprazole Magnesium [Nexium] 20 mg PO DAILY 08/16/13 04/18/14 Ezetimibe [Zetia] 10 mg PO QD 08/16/13 04/18/14 Glucosamine/Methylsulfonylmeth [Sm 1 each PO BID 08/16/13 04/18/14 Glucosamine & MSM Tablet] Ibuprofen 800 mg PO DAILY 08/16/13 04/18/14 Metformin HCl [Glumetza] 500 mg PO BID 08/16/13 04/18/14 Multivitamin [Multi-Vitamin Daily] 1 each PO DAILY 08/16/13 04/18/14 Tamsulosin [Flomax] 0.4 mg PO DAILY 08/16/13 04/18/14 Vit B12/Folic Acid/B6/Aa No.15 1 each PO DAILY 08/16/13 04/18/14 [Glycotrol Capsule] Vit D3/Folic Acid/B2/B6/B12 2,000 units PO DAILY 08/16/13 04/18/14 [Folgard Tablet] allopurinoL [Zyloprim] 150 mg PO DAILY 08/16/13 04/18/14 lisinopriL [Zestril] 5 mg PO ONCE 08/16/13 04/18/14 atenoloL [Atenolol] 12.5 mg QPM 03/14/14 04/18/14 diltiaZEM [Cardizem] 30 mg PO Q6H #30 tablet 03/14/14 04/18/14 Insulin Glargine [Lantus Solostar] 25 units SQ DAILY 04/16/14 04/18/14 Insulin Lispro [Humalog] 5 - 15 unit SQ ACHS PRN 04/16/14 04/18/14 Brewer-3 Fatty Acids/Fish Oil [Fish 1 each PO BID 04/16/14 04/18/14 Oil 1,000 mg Capsule] Ubidecarenone [Co Q-10] 300 mg PO BID 04/16/14 04/18/14 Hydrocodone/Acetaminophen 1 each PO Q6H PRN #20 tablet 04/18/14 [Hydrocodon-Acetaminophen 5-325] Acetaminophen [Tylenol] 650 mg PO Q6H PRN #30 tab 06/30/20 Hydrocodone/Acetaminophen [[place] 1 each PO BID PRN #15 tablet 06/30/20 5-325 Tablet] - Allergies Allergies/Adverse Reactions: Allergies Allergy/AdvReac Type Severity Reaction Status Date / Time erythromycin base Allergy Unknown Verified 06/30/20 16:22 [Erythromycin Base] naproxen Allergy Unknown Verified 06/30/20 16:22 nitroglycerin Allergy Unknown Verified 06/30/20 16:22 - Social History Does the pt smoke?: No Smoking Status: Never smoker Does the pt drink ETOH?: No Does the pt have substance abuse?: No - POLST Patient has POLST: No PD ED PE EXPANDED - General General: Alert, No acute distress, Well developed/nourished - HEENT HEENT: Atraumatic, PERRL, EOMI - Neck Neck: Supple w/out meningeal sx, No tenderness - Cardiac Cardiac: Irregularly irregular, Murmur Present, Radial strong equal, Cap refill < 2 sec - Respiratory Respiratory: Clear to ausultation marielos. No: Distress, Labored - Abdomen Abdomen: Normal Bowel sounds, Tender to palpation (Tenderness without guarding or rebound. No CVA tenderness. Negative Morrow's negative McBurney's.) - Extremities Extremities: No: Deformity, Tenderness, Pedal edema bilateral - Neuro Neuro: Alert and Oriented X 3, CNII-XII intact, Normal gait, Normal finger nose, Normal speech - GCS Eye Opening: Spontaneous Motor: Obeys Commands Verbal: Oriented Total: 15 Results - Vitals Vitals: Vital Signs - 24 hr 06/30/20 16:17 Temperature 36.0 C L Heart Rate 70 Respiratory 15 Rate Blood Pressure 147/93 H O2 Saturation 100 Oxygen O2 Source Room air - Labs Labs: Laboratory Tests 06/30/20 06/30/20 06/30/20 16:30 17:00 17:00 WBC 8.5 RBC 4.29 L Hgb 13.4 L Hct 40.9 L MCV 95.3 H MCH 31.2 H MCHC 32.8 RDW 13.2 Plt Count 157 MPV 9.9 Neut # (Auto) 5.6 Lymph # (Auto) 1.9 Starr # (Auto) 0.8 Eos # (Auto) 0.2 Baso # (Auto) 0.1 Absolute Nucleated RBC 0.00 Nucleated RBC % 0.0 PT INR Sodium 136 Potassium 3.9 Chloride 105 Carbon Dioxide 23 Anion Gap 8.0 BUN 38 H Creatinine 1.5 H Estimated GFR (MDRD) 45 L Glucose 234 H Calcium 9.3 Total Bilirubin 0.9 AST 33 ALT 47 Alkaline Phosphatase 120 Total Protein 7.2 Albumin 3.6 Globulin 3.6 Albumin/Globulin Ratio 1.0 Lipase 26 Urine Color BROWN Urine Clarity BLOODY Urine pH 6.0 Ur Specific [place] 1.020 Urine Protein 30 H Urine Glucose (UA) NEGATIVE Urine Ketones NEGATIVE Urine Occult Blood LARGE H Urine Nitrite NEGATIVE Urine Bilirubin NEGATIVE Urine Urobilinogen 0.2 (NORMAL) Ur Leukocyte Esterase NEGATIVE Urine RBC TNTC H Urine WBC 0-3 Ur Squamous Epith Cells NONE SEEN Urine Bacteria None Seen Urine Yeast PRESENT Ur Microscopic Review INDICATED Urine Culture Comments NOT INDICATED 06/30/20 17:00 WBC RBC Hgb Hct MCV MCH MCHC RDW Plt Count MPV Neut # (Auto) Lymph # (Auto) Starr # (Auto) Eos # (Auto) Baso # (Auto) Absolute Nucleated RBC Nucleated RBC % PT 14.5 H INR 1.3 H Sodium Potassium Chloride Carbon Dioxide Anion Gap BUN Creatinine Estimated GFR (MDRD) Glucose Calcium Total Bilirubin AST ALT Alkaline Phosphatase Total Protein Albumin Globulin Albumin/Globulin Ratio Lipase Urine Color Urine Clarity Urine pH Ur Specific [place] Urine Protein Urine Glucose (UA) Urine Ketones Urine Occult Blood Urine Nitrite Urine Bilirubin Urine Urobilinogen Ur Leukocyte Esterase Urine RBC Urine WBC Ur Squamous Epith Cells Urine Bacteria Urine Yeast Ur Microscopic Review Urine Culture Comments - Rads (name of study) CT abd w/o Radiology: Final report received (Left mid ureter stone with mild to moderate left-sided hydronephrosis and proximal hydroureter. Mild left perinephric fat stranding. No right-sided renal stone or hydronephrosis. Normal-appearing urinary bladder and right ureter. Enlarged prostate gland) PD MEDICAL DECISION MAKING - ED course Complexity details: reviewed results, re-evaluated patient, considered differential, d/w patient ED course: 85-year-old male presents to the emergency department for evaluation of 24 hours acute left flank pain and hematuria. Today on labs he does have noted hematuria in his urine but no signs of infection. He does have some mild Renal insufficiency and had a mildly elevated BUN. He was given 1 L crystalloid here in the emergency department. CT scan obtained without contrast did reveal a 3 mm left ureter stone with mild to moderate proximal hydroureter and hydronephrosis. The urine showed no signs of infection. This gentleman was given half a milligram of Dilaudid in the ER with good resolution of pain. Given age and renal insufficiency I will recommend Tylenol at home as needed for pain and write a prescription for a limited amount of hydrocodone. He did also discuss his concerns about epistaxis with recent anticoagulant change. He is currently now on Eliquis for the last 2 days and has had no repeated epistaxis. He does not have any signs of systemic bleeding such as excessive bruising or bleeding in his skin or on his gumline. No petechiae. At this time I do not feel that we need to change his anticoagulant. Though I did discuss that if he did have a return of epistaxis it may be prudent to return him to the Coumadin where he had no bleeding difficulties though he did not like having to have his INR checked. Departure - Departure Disposition: 01 Home, Self Care Clinical Impression: Ureteral calculus, left, Hydronephrosis, left, Left nephrolithiasis Condition: Stable Record reviewed to determine appropriate education?: Yes Instructions: Hydronephrosis Ch Follow-Up: Carrillo Kirby MD [Physician No Access] - Prescriptions: Hydrocodone/Acetaminophen [[place] 5-325 Tablet] 1 each PO BID PRN #15 tablet PRN Reason: Pain Acetaminophen [Tylenol] 650 mg PO Q6H PRN #30 tab PRN Reason: Pain Comments: Sean you were seen today for pain on the left side of your abdomen. As we discussed the CT scan does show that you have left ureter. This is causing some swelling of the ureter and the kidney. However the stone is small enough that we do expect that it could pass. I would like you to stay well-hydrated over the next week in order to help ensure that were can flush her kidneys. For pain I would like you to take the Tylenol 4 times a day as needed. You are having severe pain you may take 1/2-1 full tablet of [place]/Vicodin. Please be careful using this medication it may make you dizzy, and prone to falls. Do not drive if taking the [place]. Please call the urologist Dr. Kirby tomorrow to arrange follow-up of this kidney stone. If at any point you are having worsening symptoms, high fevers severe pain uncontrolled vomiting or your symptoms fail to improve please return to the ER for second look
[2020-06-30] MEDS ORDERED: SODIUM CHLORIDE 0.9% 1,000 ML IV STA (17:07)
[2020-06-30 17:20] LABS: BASOPHILS # (AUTO) 0.1 10^3/uL (0.0-0.1); BASOPHILS % (AUTO) 0.7 %; EOSINOPHILS # (AUTO) 0.2 10^3/uL (0.0-0.7); EOSINOPHILS % (AUTO) 2.2 %; HGB - HEMOGLOBIN 13.4 g/dL (14.0-18.0); LYMPHOCYTES # (AUTO) 1.9 10^3/uL (1.5-3.5); LYMPHOCYTES % (AUTO) 22.4 %; MEAN CORPUSCULAR HEMOGLOBIN 31.2 pg (27.0-31.0); MEAN CORPUSCULAR HGB CONC 32.8 g/dL (32.0-36.0); MEAN CORPUSCULAR VOLUME 95.3 fL (80.0-94.0); MEAN PLATELET VOLUME 9.9 fL (7.4-11.4); MONOCYTES # (AUTO) 0.8 10^3/uL (0.0-1.0); MONOCYTES % (AUTO) 9.3 %; NEUTROPHILS # (AUTO) 5.6 10^3/uL (1.5-6.6); NEUTROPHILS % (AUTO) 64.9 %; PLT - PLATELET COUNT 157 10^3/uL (130-450); RED BLOOD COUNT 4.29 10^6/uL (4.70-6.10); RED CELL DISTRIBUTION WIDTH 13.2 % (12.0-15.0); WHITE BLOOD COUNT 8.5 x10^3/uL (4.8-10.8)
[2020-06-30 17:21] LABS: INR 1.3 (0.8-1.2); PT - PROTHROMBIN TIME 14.5 secs (9.9-12.6)
[2020-06-30 17:28] LABS: ALBUMIN 3.6 g/dL (3.2-5.5); BILIRUBIN,TOTAL 0.9 mg/dL (0.2-1.0); CALCIUM 9.3 mg/dL (8.5-10.3); CREATININE 1.5 mg/dL (0.6-1.2); TOTAL PROTEIN 7.2 g/dL (6.7-8.2)
[2020-06-30] MEDS ORDERED: HYDROmorphone 2 MG/ML VIAL IVP STA (18:24)
--- NOTE | 2020-06-30 18:31 | CT Report ---
PROCEDURE: Abdomen/Pelvis WO INDICATIONS: left flank pain/hematuria TECHNIQUE: Noncontrast 5 mm thick sections acquired from the diaphragms to the symphysis. 5 mm coronal and sagi ttal reformats were then performed. For radiation dose reduction, the following was used: automated exposure control, adjustment of mA and/or kV according to patient size. COMPARISON: None. FINDINGS: Image quality: Excellent. ABDOMEN: Lung bases: Lung bases are clear. Heart size is normal. Pacemaker leads are noted in the region of right atrium and right ventricle. There is a moderate size hiatal hernia. Solid organs: Liver and spleen are normal in size. Gallbladder is within normal limits. Pancreas i s normal in contours. No adrenal nodules. Kidneys are normal in size. Prominence of left renal pelv is and left renal collecting system is seen with mild left perinephric fat stranding. 3 mm obstructin g stone is seen in left mid ureter series 3 image 50. 3 mm nonobstructing stone in mid pole of left k idney is also seen. There is suggestion of bilateral renal cysts. No right-sided hydronephrosis. Norm al-appearing right ureter is seen. Peritoneum and bowel: Unenhanced bowel loops demonstrate normal wall thickness and caliber. No free fluid or air. Nodes and vessels: No retroperitoneal or mesenteric adenopathy by size criteria. Aorta and inferior vena cava are normal in caliber. Moderate atherosclerotic calcifications are seen. Miscellaneous: No ventral hernias. PELVIS: Genitourinary: Bladder wall thickness is normal. Enlarged prostate gland with mass effect on floor of urinary bladder is seen. Miscellaneous: No inguinal hernias or adenopathy. Bones: No suspicious bony lesions. No vertebral body compression fractures. Degenerative disc dise ase throughout lumbar spine is seen. IMPRESSION: 1. 3 mm left mid ureteral stone with mild to moderate left-sided hydronephrosis and proximal hydroure ter. Mild left perinephric fat stranding. 2. No right-sided renal stone or hydronephrosis. Normal-appearing urinary bladder and right ureter. E nlarged prostate gland with mass effect on floor of urinary bladder. 3. No bowel obstruction. No abnormal bowel wall thickening. No free fluid of free air. Reviewed by: Pérez Ash MD on 06/30/2020 5:30 PM AKST Approved by: Pérez Ash MD on 06/30/2020 5:30 PM AKST Station ID: [id number]
[2020-06-30 19:59] VITALS: BP 147/75
== END 2020-06-30 20:21 | disposition home or self-care (01) ==
LOC: ED 16:10
DX: N13.2 Hydronephrosis with renal and ureteral calculous obstruction (principal); I48.91 Unspecified atrial fibrillation; E11.29 Type 2 diabetes mellitus with other diabetic kidney complication; I10 Essential (primary) hypertension; Z79.4 Long term (current) use of insulin; Z79.01 Long term (current) use of anticoagulants
CPT/HCPCS: 36415; 74176; 80053; 81001; 83690; 85025; 85610; 96374; 99284; J1170; 81003; 87086

== ENCOUNTER 2020-08-23 08:00 | Outpatient (CLI) | payer MEDICARE, BC ==
[2020-08-23 18:50] LABS: MICROALBUM/CREATININE RATIO,UR 5.8 ug/mg (<30.0); MICROALBUMIN,URINE 0.6 mg/dL (0-300.0)
[2020-08-23 19:08] LABS: ALBUMIN 3.8 g/dL (3.2-5.5); ALBUMIN/GLOBULIN RATIO 1.3 (1.0-2.2); ALKALINE PHOSPHATASE 113 IU/L (42-121); ALT ALANINE AMINOTRANSFERASE 65 IU/L (10-60); AST ASPARTATE AMINOTRANSFERASE 41 IU/L (10-42); BILIRUBIN,TOTAL 1.1 mg/dL (0.2-1.0); BUN - BLOOD UREA NITROGEN 32 mg/dL (6-20); CALCIUM 9.3 mg/dL (8.5-10.3); CARBON DIOXIDE - CO2 24 mmol/L (21-32); CHLORIDE 109 mmol/L (101-111); CHOL/HDL RATIO 3.3 (<5.0); CHOLESTEROL 118 mg/dL; GLUCOSE 136 mg/dL (70-100); HDL CHOLESTEROL 36 mg/dL; LDL CHOLESTEROL,CALCULATED 69 mg/dL; LDL/HDL RATIO 1.9 (<3.6); TOTAL PROTEIN 6.8 g/dL (6.7-8.2); VLDL CHOLESTEROL 13 mg/dL
[2020-08-23 19:13] LABS: BASOPHILS # (AUTO) 0.1 10^3/uL (0.0-0.1); BASOPHILS % (AUTO) 0.9 %; EOSINOPHILS # (AUTO) 0.3 10^3/uL (0.0-0.7); EOSINOPHILS % (AUTO) 3.3 %; HGB - HEMOGLOBIN 13.9 g/dL (14.0-18.0); LYMPHOCYTES % (AUTO) 25.7 %; MEAN CORPUSCULAR HEMOGLOBIN 30.4 pg (27.0-31.0); MEAN CORPUSCULAR HGB CONC 31.7 g/dL (32.0-36.0); MEAN CORPUSCULAR VOLUME 96.1 fL (80.0-94.0); MONOCYTES # (AUTO) 0.6 10^3/uL (0.0-1.0); MONOCYTES % (AUTO) 7.5 %; NEUTROPHILS # (AUTO) 4.9 10^3/uL (1.5-6.6); NEUTROPHILS % (AUTO) 62.2 %; PLT - PLATELET COUNT 171 10^3/uL (130-450); RED BLOOD COUNT 4.57 10^6/uL (4.70-6.10); RED CELL DISTRIBUTION WIDTH 14.8 % (12.0-15.0); WHITE BLOOD COUNT 7.8 x10^3/uL (4.8-10.8)
[2020-08-23 20:55] LABS: HEMOGLOBIN A1c% 8.3 % (4.27-6.07)
== END 2020-08-23 23:59 | disposition home or self-care (01) ==
LOC: LAB.WCP 08:00
PROVIDERS: ATTEND Internal Medicine
DX: E11.9 Type 2 diabetes mellitus without complications (principal)
CPT/HCPCS: 36415; 80053; 80061; 82043; 82570; 83036; 83721; 85025

== ENCOUNTER 2021-06-28 08:00 | Outpatient (CLI) | payer MEDICARE, BC ==
[2021-06-28 13:10] LABS: BASOPHILS # (AUTO) 0.1 10^3/uL (0.0-0.1); BASOPHILS % (AUTO) 0.8 %; EOSINOPHILS # (AUTO) 0.3 10^3/uL (0.0-0.7); EOSINOPHILS % (AUTO) 4.2 %; HGB - HEMOGLOBIN 13.9 g/dL (14.0-18.0); LYMPHOCYTES # (AUTO) 1.7 10^3/uL (1.5-3.5); LYMPHOCYTES % (AUTO) 23.5 %; MEAN CORPUSCULAR HGB CONC 33.9 g/dL (32.0-36.0); MEAN CORPUSCULAR VOLUME 94.3 fL (80.0-94.0); MEAN PLATELET VOLUME 10.1 fL (7.4-11.4); MONOCYTES # (AUTO) 0.6 10^3/uL (0.0-1.0); MONOCYTES % (AUTO) 8.7 %; NEUTROPHILS # (AUTO) 4.6 10^3/uL (1.5-6.6); NEUTROPHILS % (AUTO) 62.5 %; PLT - PLATELET COUNT 140 10^3/uL (130-450); RED BLOOD COUNT 4.35 10^6/uL (4.70-6.10); WHITE BLOOD COUNT 7.3 x10^3/uL (4.8-10.8)
[2021-06-28 13:19] LABS: ESTIMATED AVERAGE GLUCOSE 214 mg/dL (70-100); HEMOGLOBIN A1c% 9.1 % (4.27-6.07)
[2021-06-28 13:25] LABS: CREATININE,URINE 106.8 mg/dL; MICROALBUM/CREATININE RATIO,UR 20.6 ug/mg (<30.0); MICROALBUMIN,URINE 2.2 mg/dL (0-300.0)
[2021-06-28 13:59] LABS: ALBUMIN 3.6 g/dL (3.2-5.5); ALBUMIN/GLOBULIN RATIO 1.3 (1.0-2.2); ALKALINE PHOSPHATASE 108 IU/L (42-121); ALT ALANINE AMINOTRANSFERASE 56 IU/L (10-60); AST ASPARTATE AMINOTRANSFERASE 41 IU/L (10-42); BILIRUBIN,TOTAL 1.1 mg/dL (0.2-1.0); BUN - BLOOD UREA NITROGEN 27 mg/dL (6-20); CARBON DIOXIDE - CO2 27 mmol/L (21-32); CHLORIDE 103 mmol/L (101-111); CHOLESTEROL 112 mg/dL; CREATININE 0.9 mg/dL (0.6-1.2); GFR - MDRD 80 (>89); GLUCOSE 189 mg/dL (70-100); HDL CHOLESTEROL 37 mg/dL; LDL CHOLESTEROL,CALCULATED 60 mg/dL; LDL/HDL RATIO 1.6 (<3.6); SODIUM 136 mmol/L (135-145); TOTAL PROTEIN 6.4 g/dL (6.7-8.2); TRIGLYCERIDES 77 mg/dL; VLDL CHOLESTEROL 15 mg/dL
[2021-06-28 14:24] LABS: THYROID STIMULATING HORMONE 2.03 uIU/mL (0.34-5.60)
== END 2021-06-28 23:59 ==
LOC: LAB.WCP 08:00
PROVIDERS: ATTEND Internal Medicine
DX: E11.59 Type 2 diabetes mellitus with other circulatory complications (principal); I48.0 Paroxysmal atrial fibrillation
CPT/HCPCS: 36415; 80053; 80061; 82043; 82570; 83036; 83721; 84443; 85025

== ENCOUNTER 2021-11-14 10:17 | Outpatient (CLI) | payer MEDICARE, BC ==
[2021-11-14 12:37] LABS: BASOPHILS # (AUTO) 0.1 10^3/uL (0.0-0.1); EOSINOPHILS # (AUTO) 0.4 10^3/uL (0.0-0.7); EOSINOPHILS % (AUTO) 4.6 %; HCT - HEMATOCRIT 43.4 % (42.0-52.0); HGB - HEMOGLOBIN 14.5 g/dL (14.0-18.0); LYMPHOCYTES # (AUTO) 1.7 10^3/uL (1.5-3.5); MEAN CORPUSCULAR HEMOGLOBIN 31.5 pg (27.0-31.0); MEAN CORPUSCULAR HGB CONC 33.4 g/dL (32.0-36.0); MEAN CORPUSCULAR VOLUME 94.3 fL (80.0-94.0); MEAN PLATELET VOLUME 10.4 fL (7.4-11.4); MONOCYTES # (AUTO) 0.7 10^3/uL (0.0-1.0); MONOCYTES % (AUTO) 8.7 %; NEUTROPHILS # (AUTO) 5.4 10^3/uL (1.5-6.6); NEUTROPHILS % (AUTO) 65.2 %; PLT - PLATELET COUNT 154 10^3/uL (130-450); WHITE BLOOD COUNT 8.3 x10^3/uL (4.8-10.8)
[2021-11-14 13:05] LABS: ESTIMATED AVERAGE GLUCOSE 237 mg/dL (70-100); HEMOGLOBIN A1c% 9.9 % (4.27-6.07)
[2021-11-14 13:06] LABS: CREATININE,URINE 126.9 mg/dL; MICROALBUM/CREATININE RATIO,UR 24.4 ug/mg (<30.0); MICROALBUMIN,URINE 3.1 mg/dL (0-300.0)
[2021-11-14 13:26] LABS: THYROID STIMULATING HORMONE 1.98 uIU/mL (0.34-5.60)
[2021-11-14 13:32] LABS: ALBUMIN 3.5 g/dL (3.2-5.5); ALBUMIN/GLOBULIN RATIO 1.1 (1.0-2.2); ALKALINE PHOSPHATASE 220 IU/L (42-121); ALT ALANINE AMINOTRANSFERASE 145 IU/L (10-60); AST ASPARTATE AMINOTRANSFERASE 113 IU/L (10-42); BUN - BLOOD UREA NITROGEN 29 mg/dL (6-20); CALCIUM 9.3 mg/dL (8.5-10.3); CARBON DIOXIDE - CO2 26 mmol/L (21-32); CHLORIDE 103 mmol/L (101-111); CHOL/HDL RATIO 3.3 (<5.0); CHOLESTEROL 108 mg/dL; CREATININE 1.1 mg/dL (0.6-1.2); GFR - MDRD 64 (>89); GLUCOSE 207 mg/dL (70-100); HDL CHOLESTEROL 33 mg/dL; LDL CHOLESTEROL,CALCULATED 53 mg/dL; LDL/HDL RATIO 1.6 (<3.6); POTASSIUM 4.3 mmol/L (3.5-5.0); SODIUM 135 mmol/L (135-145); TOTAL PROTEIN 6.7 g/dL (6.7-8.2); TRIGLYCERIDES 109 mg/dL; VLDL CHOLESTEROL 22 mg/dL
== END 2021-11-14 10:18 | disposition home or self-care (01) ==
LOC: LAB.N 10:17
PROVIDERS: ATTEND Internal Medicine
DX: E11.59 Type 2 diabetes mellitus with other circulatory complications (principal); I25.10 Atherosclerotic heart disease of native coronary artery without angina pectoris; I48.0 Paroxysmal atrial fibrillation
CPT/HCPCS: 36415; 80053; 80061; 82043; 82570; 83036; 83721; 84443; 85025

== ENCOUNTER 2021-11-23 11:56 | Outpatient (CLI) | payer MEDICARE, BC ==
[2021-11-23 18:18] LABS: BASOPHILS # (AUTO) 0.1 10^3/uL (0.0-0.1); BASOPHILS % (AUTO) 0.6 %; EOSINOPHILS # (AUTO) 0.2 10^3/uL (0.0-0.7); EOSINOPHILS % (AUTO) 2.9 %; HCT - HEMATOCRIT 43.6 % (42.0-52.0); HGB - HEMOGLOBIN 14.4 g/dL (14.0-18.0); LYMPHOCYTES # (AUTO) 1.7 10^3/uL (1.5-3.5); LYMPHOCYTES % (AUTO) 21.8 %; MEAN CORPUSCULAR HEMOGLOBIN 31.2 pg (27.0-31.0); MEAN CORPUSCULAR VOLUME 94.4 fL (80.0-94.0); MEAN PLATELET VOLUME 10.8 fL (7.4-11.4); MONOCYTES # (AUTO) 0.6 10^3/uL (0.0-1.0); NEUTROPHILS # (AUTO) 5.2 10^3/uL (1.5-6.6); NEUTROPHILS % (AUTO) 66.3 %; PLT - PLATELET COUNT 158 10^3/uL (130-450); RED BLOOD COUNT 4.62 10^6/uL (4.70-6.10); RED CELL DISTRIBUTION WIDTH 14.3 % (12.0-15.0); WHITE BLOOD COUNT 7.9 x10^3/uL (4.8-10.8)
[2021-11-23 18:38] LABS: ALBUMIN 3.6 g/dL (3.2-5.5); BILIRUBIN,TOTAL 0.9 mg/dL (0.2-1.0); CALCIUM 9.1 mg/dL (8.5-10.3); CREATININE 1.1 mg/dL (0.6-1.2); POTASSIUM 4.4 mmol/L (3.5-5.0); TOTAL PROTEIN 7.2 g/dL (6.7-8.2)
== END 2021-11-23 11:57 | disposition home or self-care (01) ==
LOC: LAB.N 11:56
PROVIDERS: ATTEND Internal Medicine
DX: R79.89 Other specified abnormal findings of blood chemistry (principal)
CPT/HCPCS: 36415; 80053; 82728; 83540; 84466; 85025; 86317; 86704; 86708; 86803; 87340; 87522

== ENCOUNTER 2022-02-21 10:44 | Outpatient (CLI) | payer MEDICARE, BC ==
[2022-02-21 17:50] LABS: BASOPHILS # (AUTO) 0.1 10^3/uL (0.0-0.1); BASOPHILS % (AUTO) 1.1 %; EOSINOPHILS # (AUTO) 0.3 10^3/uL (0.0-0.7); EOSINOPHILS % (AUTO) 3.8 %; HCT - HEMATOCRIT 46.4 % (42.0-52.0); HGB - HEMOGLOBIN 15.4 g/dL (14.0-18.0); LYMPHOCYTES # (AUTO) 2.2 10^3/uL (1.5-3.5); LYMPHOCYTES % (AUTO) 26.2 %; MEAN CORPUSCULAR HEMOGLOBIN 31.4 pg (27.0-31.0); MEAN CORPUSCULAR HGB CONC 33.2 g/dL (32.0-36.0); MEAN CORPUSCULAR VOLUME 94.7 fL (80.0-94.0); MEAN PLATELET VOLUME 10.7 fL (7.4-11.4); MONOCYTES # (AUTO) 0.8 10^3/uL (0.0-1.0); MONOCYTES % (AUTO) 9.5 %; NEUTROPHILS # (AUTO) 4.8 10^3/uL (1.5-6.6); NEUTROPHILS % (AUTO) 58.5 %; PLT - PLATELET COUNT 186 10^3/uL (130-450); RED CELL DISTRIBUTION WIDTH 14.8 % (12.0-15.0); WHITE BLOOD COUNT 8.2 x10^3/uL (4.8-10.8)
[2022-02-21 18:08] LABS: ALBUMIN 3.6 g/dL (3.2-5.5); ALBUMIN/GLOBULIN RATIO 0.9 (1.0-2.2); CALCIUM 9.5 mg/dL (8.5-10.3); CREATININE 1.2 mg/dL (0.6-1.2); POTASSIUM 4.1 mmol/L (3.5-5.0); TOTAL PROTEIN 7.7 g/dL (6.7-8.2)
[2022-02-21 21:00] LABS: ESTIMATED AVERAGE GLUCOSE 220 mg/dL (70-100); HEMOGLOBIN A1c% 9.3 % (4.27-6.07)
== END 2022-02-21 10:45 | disposition home or self-care (01) ==
LOC: LAB.N 10:44
PROVIDERS: ATTEND Internal Medicine
DX: R79.89 Other specified abnormal findings of blood chemistry (principal); E11.59 Type 2 diabetes mellitus with other circulatory complications
CPT/HCPCS: 36415; 80053; 83036; 85025

== ENCOUNTER 2022-06-22 12:39 | Outpatient (CLI) | payer MEDICARE, BC ==
[2022-06-22 18:07] LABS: BASOPHILS # (AUTO) 0.1 10^3/uL (0.0-0.1); BASOPHILS % (AUTO) 0.8 %; EOSINOPHILS # (AUTO) 0.2 10^3/uL (0.0-0.7); HCT - HEMATOCRIT 46.3 % (42.0-52.0); HGB - HEMOGLOBIN 15.2 g/dL (14.0-18.0); LYMPHOCYTES # (AUTO) 2.2 10^3/uL (1.5-3.5); LYMPHOCYTES % (AUTO) 28.7 %; MEAN CORPUSCULAR HEMOGLOBIN 31.4 pg (27.0-31.0); MEAN CORPUSCULAR HGB CONC 32.8 g/dL (32.0-36.0); MEAN CORPUSCULAR VOLUME 95.7 fL (80.0-94.0); MEAN PLATELET VOLUME 10.3 fL (7.4-11.4); MONOCYTES # (AUTO) 0.6 10^3/uL (0.0-1.0); MONOCYTES % (AUTO) 7.9 %; NEUTROPHILS # (AUTO) 4.4 10^3/uL (1.5-6.6); NEUTROPHILS % (AUTO) 58.9 %; PLT - PLATELET COUNT 174 10^3/uL (130-450); RED BLOOD COUNT 4.84 10^6/uL (4.70-6.10); RED CELL DISTRIBUTION WIDTH 15.2 % (12.0-15.0); WHITE BLOOD COUNT 7.6 x10^3/uL (4.8-10.8)
[2022-06-22 18:47] LABS: ALBUMIN 3.4 g/dL (3.2-5.5); ALBUMIN/GLOBULIN RATIO 0.9 (1.0-2.2); ALKALINE PHOSPHATASE 128 IU/L (42-121); ALT ALANINE AMINOTRANSFERASE 38 IU/L (10-60); AMYLASE 65 U/L (28-100); AST ASPARTATE AMINOTRANSFERASE 34 IU/L (10-42); BILIRUBIN,TOTAL 0.7 mg/dL (0.2-1.0); BUN - BLOOD UREA NITROGEN 31 mg/dL (6-20); CALCIUM 9.2 mg/dL (8.5-10.3); CARBON DIOXIDE - CO2 26 mmol/L (21-32); CHLORIDE 105 mmol/L (101-111); CHOL/HDL RATIO 5.6 (<5.0); CHOLESTEROL 213 mg/dL; CREATININE 1.1 mg/dL (0.6-1.2); GFR - MDRD 63 (>89); GLUCOSE 153 mg/dL (70-100); HDL CHOLESTEROL 38 mg/dL; LDL CHOLESTEROL,CALCULATED 151 mg/dL; LIPASE 38 U/L (22-51); POTASSIUM 4.3 mmol/L (3.5-5.0); SODIUM 137 mmol/L (135-145); TOTAL PROTEIN 7.1 g/dL (6.7-8.2); TRIGLYCERIDES 122 mg/dL; VLDL CHOLESTEROL 24 mg/dL
[2022-06-22 21:35] LABS: ESTIMATED AVERAGE GLUCOSE 186 mg/dL (70-100); HEMOGLOBIN A1c% 8.1 % (4.27-6.07)
== END 2022-06-22 12:40 | disposition home or self-care (01) ==
LOC: LAB.N 12:39
PROVIDERS: ATTEND Internal Medicine
DX: E78.5 Hyperlipidemia, unspecified (principal); I10 Essential (primary) hypertension; E11.59 Type 2 diabetes mellitus with other circulatory complications; R79.89 Other specified abnormal findings of blood chemistry
CPT/HCPCS: 36415; 80053; 80061; 82150; 83036; 83690; 83721; 85025

== ENCOUNTER 2022-10-01 08:00 | Outpatient (CLI) | payer MEDICARE, BC ==
[2022-10-01 12:59] LABS: BASOPHILS # (AUTO) 0.1 10^3/uL (0.0-0.1); BASOPHILS % (AUTO) 0.7 %; EOSINOPHILS # (AUTO) 0.2 10^3/uL (0.0-0.7); HCT - HEMATOCRIT 45.7 % (42.0-52.0); HGB - HEMOGLOBIN 15.3 g/dL (14.0-18.0); LYMPHOCYTES # (AUTO) 2.2 10^3/uL (1.5-3.5); MEAN CORPUSCULAR HEMOGLOBIN 31.9 pg (27.0-31.0); MEAN CORPUSCULAR HGB CONC 33.5 g/dL (32.0-36.0); MEAN CORPUSCULAR VOLUME 95.2 fL (80.0-94.0); MONOCYTES # (AUTO) 0.6 10^3/uL (0.0-1.0); MONOCYTES % (AUTO) 8.6 %; NEUTROPHILS # (AUTO) 4.2 10^3/uL (1.5-6.6); NEUTROPHILS % (AUTO) 57.2 %; PLT - PLATELET COUNT 138 10^3/uL (130-450); WHITE BLOOD COUNT 7.3 x10^3/uL (4.8-10.8)
[2022-10-01 13:14] LABS: ALBUMIN 3.6 g/dL (3.2-5.5); ALBUMIN/GLOBULIN RATIO 1.3 (1.0-2.2); BILIRUBIN,TOTAL 0.9 mg/dL (0.2-1.0); CREATININE 1.1 mg/dL (0.6-1.2); POTASSIUM 4.3 mmol/L (3.5-5.0); TOTAL PROTEIN 6.4 g/dL (6.7-8.2)
[2022-10-01 13:31] LABS: ESTIMATED AVERAGE GLUCOSE 166 mg/dL (70-100); HEMOGLOBIN A1c% 7.4 % (4.27-6.07)
== END 2022-10-01 23:59 | disposition home or self-care (01) ==
LOC: LAB.N 08:00
PROVIDERS: ATTEND Internal Medicine
DX: E11.59 Type 2 diabetes mellitus with other circulatory complications (principal); R94.5 Abnormal results of liver function studies
CPT/HCPCS: 36415; 80053; 83036; 85025

== ENCOUNTER 2023-01-10 07:21 | Outpatient (CLI) | payer MEDICARE, BC ==
[2023-01-10 12:16] LABS: ESTIMATED AVERAGE GLUCOSE 157 mg/dL (70-100); HEMOGLOBIN A1c% 7.1 % (4.27-6.07)
[2023-01-10 12:20] LABS: ALBUMIN 3.6 g/dL (3.2-5.5); ALBUMIN/GLOBULIN RATIO 1.2 (1.0-2.2); ALKALINE PHOSPHATASE 100 IU/L (42-121); ALT ALANINE AMINOTRANSFERASE 60 IU/L (10-60); AST ASPARTATE AMINOTRANSFERASE 57 IU/L (10-42); BILIRUBIN,TOTAL 0.8 mg/dL (0.2-1.0); BUN - BLOOD UREA NITROGEN 26 mg/dL (6-20); CALCIUM 8.9 mg/dL (8.5-10.3); CARBON DIOXIDE - CO2 26 mmol/L (21-32); CHLORIDE 109 mmol/L (101-111); CHOL/HDL RATIO 3.1 (<5.0); CHOLESTEROL 144 mg/dL; CREATININE 1.1 mg/dL (0.6-1.2); GFR - MDRD 63 (>89); GLUCOSE 167 mg/dL (70-100); HDL CHOLESTEROL 47 mg/dL; LDL CHOLESTEROL,CALCULATED 83 mg/dL; LDL/HDL RATIO 1.8 (<3.6); POTASSIUM 4.3 mmol/L (3.5-5.0); SODIUM 138 mmol/L (135-145); TOTAL PROTEIN 6.5 g/dL (6.7-8.2); TRIGLYCERIDES 70 mg/dL; VLDL CHOLESTEROL 14 mg/dL
== END 2023-01-10 07:22 | disposition home or self-care (01) ==
LOC: LAB.N 07:21
PROVIDERS: ATTEND Internal Medicine
DX: E11.59 Type 2 diabetes mellitus with other circulatory complications (principal); E78.5 Hyperlipidemia, unspecified
CPT/HCPCS: 36415; 80053; 80061; 83036; 83721

== ENCOUNTER 2023-05-07 10:58 | Outpatient (CLI) | payer MEDICARE, BC ==
[2023-05-07 18:06] LABS: ALBUMIN 4.1 g/dL (3.2-5.5); ALBUMIN/GLOBULIN RATIO 1.4 (1.0-2.2); BILIRUBIN,TOTAL 1.3 mg/dL (0.2-1.0); CALCIUM 9.7 mg/dL (8.5-10.3); POTASSIUM 4.6 mmol/L (3.5-4.5); TOTAL PROTEIN 7.1 g/dL (6.4-8.9)
[2023-05-07 20:48] LABS: ESTIMATED AVERAGE GLUCOSE 166 mg/dL (70-100); HEMOGLOBIN A1c% 7.4 % (4.27-6.07)
== END 2023-05-07 10:59 | disposition home or self-care (01) ==
LOC: LAB.N 10:58
PROVIDERS: ATTEND Internal Medicine
DX: E11.59 Type 2 diabetes mellitus with other circulatory complications (principal)
CPT/HCPCS: 36415; 80053; 83036

== ENCOUNTER 2023-05-25 09:34 | Outpatient (CLI) | payer MEDICARE, BC ==
--- NOTE | 2023-05-26 12:21 | CT Report ---
PROCEDURE: HEAD WO INDICATIONS: MEMORY IMPAIRMENT TECHNIQUE: Noncontrast 4.5 mm thick angled axial sections acquired from the foramen magnum to the vertex. For r adiation dose reduction, the following was used: automated exposure control, adjustment of mA and/or kV according to patient size. COMPARISON: CT of the brain dated 04/18/2014 FINDINGS: Image quality: Excellent. CSF spaces: Basal cisterns are patent. No extra-axial fluid collections. The ventricles are symmet hetal in size and shape. Brain: No intracranial bleeds or masses. There is cerebral volume loss for age, with resultant vent ricular and sulcal prominence. There are periventricular and deep white matter chronic small vessel ischemic changes. There is intracranial internal carotid artery atherosclerosis. Skull and face: Calvarium and visualized facial bones appear intact, without suspicious lesions. Sinuses: Visualized sinuses and mastoids are clear. IMPRESSION: 1. No acute intracranial findings. 2. Findings likely associated with chronic microvascular ischemic changes. Reviewed by: Maria Del Rosario Miguel MD on 05/26/2023 12:19 PM PST Approved by: Maria Del Rosario Miguel MD on 05/26/2023 12:19 PM PST Station ID: [id number]
== END 2023-05-25 09:35 | disposition home or self-care (01) ==
LOC: DI 09:34
PROVIDERS: ATTEND Internal Medicine
DX: I67.82 Cerebral ischemia (principal); I65.29 Occlusion and stenosis of unspecified carotid artery; R41.3 Other amnesia

== ENCOUNTER 2023-06-05 16:26 | Outpatient (CLI) | payer MEDICARE, BC ==
--- NOTE | 2023-06-05 19:00 | XRAY Report ---
PROCEDURE: Knee 2 View LT INDICATIONS: ARTHRITIS,LEFT KNEE TECHNIQUE: 3 views of the knee(s) were acquired. COMPARISON: None. FINDINGS: Bones: No fractures or dislocations. No suspicious bony lesions. There is chondrocalcinosis in th e medial and lateral joint space. Medial joint space narrowing. Soft tissues: No knee joint effusion. No suspicious soft tissue calcifications or masses. Vascular calcifications. 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 Reviewed by: Sean Horn on 06/05/2023 6:59 PM PST Approved by: Sean Horn on 06/05/2023 6:59 PM PST Station ID: [id number]
== END 2023-06-05 16:27 | disposition home or self-care (01) ==
LOC: DI 16:26
PROVIDERS: ATTEND Family Medicine
DX: M17.12 Unilateral primary osteoarthritis, left knee (principal); M11.262 Other chondrocalcinosis, left knee

== ENCOUNTER 2023-07-09 08:00 | Outpatient (CLI) | payer MEDICARE, BC ==
--- NOTE | 2023-07-09 19:43 | XRAY Report ---
PROCEDURE: Knee 3 View LT INDICATIONS: LEFT KNEE PAIN, BILAT AP, LEFT TUNNEL LEFT SUNRISE TECHNIQUE: 3 views of the knee was obtained. COMPARISON: None FINDINGS: Bones: No fractures or dislocations. No suspicious bony lesions. Medial compartmental joint space n arrowing with meniscal stippled calcifications Soft tissues: No knee joint effusion. No suspicious soft tissue calcifications or masses. 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
== END 2023-07-09 23:59 | disposition home or self-care (01) ==
LOC: DI.WOS 08:00
PROVIDERS: ATTEND Physician Assistant Surgical
DX: M17.12 Unilateral primary osteoarthritis, left knee (principal); M11.262 Other chondrocalcinosis, left knee

== ENCOUNTER 2023-07-23 11:18 | Outpatient (CLI) | payer MEDICARE, BC ==
[2023-07-23 18:44] LABS: ALBUMIN 3.8 g/dL (3.2-5.5); ALBUMIN/GLOBULIN RATIO 1.2 (1.0-2.2); BILIRUBIN,TOTAL 1.3 mg/dL (0.2-1.0); CALCIUM 9.5 mg/dL (8.5-10.3); POTASSIUM 4.2 mmol/L (3.5-4.5); TOTAL PROTEIN 6.9 g/dL (6.4-8.9)
[2023-07-23 18:55] LABS: THYROID STIMULATING HORMONE 2.91 uIU/mL (0.34-5.60)
[2023-07-23 21:07] LABS: ESTIMATED AVERAGE GLUCOSE 169 mg/dL (70-100); HEMOGLOBIN A1c% 7.5 % (4.27-6.07)
== END 2023-07-23 11:19 | disposition home or self-care (01) ==
LOC: LAB.N 11:18
PROVIDERS: ATTEND Internal Medicine
DX: E11.59 Type 2 diabetes mellitus with other circulatory complications (principal); R41.3 Other amnesia
CPT/HCPCS: 36415; 80053; 82607; 83036; 84443

== ENCOUNTER 2023-08-28 15:15 | Outpatient (CLI) | payer MEDICARE, BC ==
[2023-08-28 18:21] LABS: BILIRUBIN,DIRECT 0.13 mg/dL (0.03-0.18); BILIRUBIN,TOTAL 0.8 mg/dL (0.2-1.0); TOTAL PROTEIN 7.2 g/dL (6.4-8.9)
== END 2023-08-28 15:16 | disposition home or self-care (01) ==
LOC: LAB.N 15:15
PROVIDERS: ATTEND Physician Assistant Medical
DX: B35.1 Tinea unguium (principal)
CPT/HCPCS: 36415; 80076

== ENCOUNTER 2023-11-25 09:13 | Outpatient (CLI) | payer MEDICARE, BC ==
[2023-11-25 12:11] LABS: BASOPHILS # (AUTO) 0.1 10^3/uL (0.0-0.1); BASOPHILS % (AUTO) 0.9 %; EOSINOPHILS # (AUTO) 0.1 10^3/uL (0.0-0.7); EOSINOPHILS % (AUTO) 1.8 %; HCT - HEMATOCRIT 47.2 % (42.0-52.0); HGB - HEMOGLOBIN 15.5 g/dL (14.0-18.0); LYMPHOCYTES # (AUTO) 2.2 10^3/uL (1.5-3.5); LYMPHOCYTES % (AUTO) 29.1 %; MEAN CORPUSCULAR HEMOGLOBIN 32.2 pg (27.0-31.0); MEAN CORPUSCULAR HGB CONC 32.8 g/dL (32.0-36.0); MEAN CORPUSCULAR VOLUME 98.1 fL (80.0-94.0); MEAN PLATELET VOLUME 10.5 fL (7.4-11.4); MONOCYTES # (AUTO) 0.7 10^3/uL (0.0-1.0); MONOCYTES % (AUTO) 8.7 %; NEUTROPHILS # (AUTO) 4.5 10^3/uL (1.5-6.6); NEUTROPHILS % (AUTO) 59.1 %; PLT - PLATELET COUNT 139 10^3/uL (130-450); RED BLOOD COUNT 4.81 10^6/uL (4.70-6.10); RED CELL DISTRIBUTION WIDTH 14.7 % (12.0-15.0); WHITE BLOOD COUNT 7.6 x10^3/uL (4.8-10.8)
[2023-11-25 12:21] LABS: ESTIMATED AVERAGE GLUCOSE 169 mg/dL (70-100); HEMOGLOBIN A1c% 7.5 % (4.27-6.07)
[2023-11-25 12:35] LABS: CREATININE,URINE 122.4 mg/dL; MICROALBUM/CREATININE RATIO,UR 91.5 ug/mg (<30.0); MICROALBUMIN,URINE 11.2 mg/dL
[2023-11-25 12:44] LABS: ALBUMIN 3.9 g/dL (3.2-5.5); ALBUMIN/GLOBULIN RATIO 1.2 (1.0-2.2); ALKALINE PHOSPHATASE 85 IU/L (42-121); ALT ALANINE AMINOTRANSFERASE 17 IU/L (10-60); AST ASPARTATE AMINOTRANSFERASE 17 IU/L (10-42); BILIRUBIN,TOTAL 1.2 mg/dL (0.2-1.0); BUN - BLOOD UREA NITROGEN 28 mg/dL (6-20); CALCIUM 9.8 mg/dL (8.5-10.3); CARBON DIOXIDE - CO2 25 mmol/L (21-32); CHLORIDE 108 mmol/L (101-111); CHOL/HDL RATIO 3.5 (<5.0); CHOLESTEROL 162 mg/dL; CREATININE 1.1 mg/dL (0.6-1.3); GFR - MDRD 63 (>89); GLUCOSE 174 mg/dL (74-104); HDL CHOLESTEROL 46 mg/dL; LDL CHOLESTEROL,CALCULATED 95 mg/dL; LDL/HDL RATIO 2.1 (<3.6); POTASSIUM 4.4 mmol/L (3.5-4.5); SODIUM 138 mmol/L (135-145); TOTAL PROTEIN 7.2 g/dL (6.4-8.9); TRIGLYCERIDES 106 mg/dL (48-352); VLDL CHOLESTEROL 21 mg/dL
== END 2023-11-25 09:14 | disposition home or self-care (01) ==
LOC: LAB.N 09:13
PROVIDERS: ATTEND Internal Medicine
DX: E11.59 Type 2 diabetes mellitus with other circulatory complications (principal); E78.5 Hyperlipidemia, unspecified; I10 Essential (primary) hypertension
CPT/HCPCS: 36415; 80053; 80061; 82043; 82570; 83036; 83721; 85025

== ENCOUNTER 2024-03-25 08:20 | Outpatient (CLI) | payer MEDICARE, BC ==
[2024-03-25 12:43] LABS: ALBUMIN 3.6 g/dL (3.2-5.5); ALBUMIN/GLOBULIN RATIO 1.2 (1.0-2.2); ALKALINE PHOSPHATASE 116 IU/L (42-121); ALT ALANINE AMINOTRANSFERASE 58 IU/L (10-60); AST ASPARTATE AMINOTRANSFERASE 34 IU/L (10-42); BILIRUBIN,TOTAL 0.8 mg/dL (0.2-1.0); BUN - BLOOD UREA NITROGEN 20 mg/dL (6-20); CALCIUM 9.6 mg/dL (8.5-10.3); CARBON DIOXIDE - CO2 29 mmol/L (21-32); CHLORIDE 105 mmol/L (101-111); CHOL/HDL RATIO 3.2 (<5.0); CHOLESTEROL 142 mg/dL; GFR - MDRD 71 (>89); GLUCOSE 187 mg/dL (74-104); HDL CHOLESTEROL 44 mg/dL; LDL CHOLESTEROL,CALCULATED 77 mg/dL; LDL/HDL RATIO 1.8 (<3.6); POTASSIUM 4.6 mmol/L (3.5-4.5); SODIUM 138 mmol/L (135-145); TOTAL PROTEIN 6.7 g/dL (6.4-8.9); TRIGLYCERIDES 105 mg/dL; URIC ACID 4.4 mg/dL (4.4-7.6); VLDL CHOLESTEROL 21 mg/dL
[2024-03-25 13:11] LABS: ESTIMATED AVERAGE GLUCOSE 169 mg/dL (70-100); HEMOGLOBIN A1c% 7.5 % (4.27-6.07)
== END 2024-03-25 08:21 | disposition home or self-care (01) ==
LOC: LAB.N 08:20
PROVIDERS: ATTEND Internal Medicine
DX: E78.5 Hyperlipidemia, unspecified (principal); E11.59 Type 2 diabetes mellitus with other circulatory complications; M10.00 Idiopathic gout, unspecified site
CPT/HCPCS: 36415; 80053; 80061; 83036; 83721; 84550